=== PATIENT | male | born 1970 | race African-American/Black ===

== ENCOUNTER 2022-08-07 17:50 | Inpatient (IN) | payer OTHER ==
[~2022-08-07] VITALS: Ht 190.5 cm; Wt 81.5 kg
[2022-08-07] MEDS ORDERED: FURO40TA5 PO (18:25)
[2022-08-07] MEDS ORDERED: SPIR25TA6 PO (18:25)
[2022-08-07] MEDS ORDERED: CARV3.1242 PO (18:25)
[2022-08-07] MEDS ORDERED: FOLI-43 PO (18:25)
[2022-08-07] MEDS ORDERED: ATOR40TA70 PO (18:25)
[2022-08-07] MEDS ORDERED: PANT40TA51 PO (18:25)
[2022-08-08 03:20] LABS: BASOPHILS % 0.5 % (0.0-2.0); EOSINOPHILS % 2.2 % (0.0-5.0); HEMATOCRIT. 40.8 % (42.0-52.0); HEMOGLOBIN. 13.1 g/dL (14.0-18.0); LYMPHOCYTES % 10.1 % (20.0-50.0); MEAN CORPUSCULAR HEMOGLOBIN 25.4 pg (28.0-32.0); MEAN CORPUSCULAR VOLUME 79.2 fL (80.0-94.0); MEAN PLATELET VOLUME 9.3 fl (7.4-10.4); MONOCYTES % 5.6 % (2.0-8.0); NEUTROPHILS % 81.6 % (40.0-76.0); PLATELET 169 x1000/uL (130-400); RED BLOOD CELL COUNT 5.15 mill/uL (4.7-6.1); RED CELL DISTRIBUTION WIDTH 25.2 % (11.6-14.6)
[2022-08-08 03:26] LABS: CHLORIDE 101 mEq/L (98-107)
[2022-08-08 03:36] LABS: ETHANOL BLOOD < 10 mg/dL
[2022-08-08] MEDS: FUROSEMIDE 100MG/10ML VIAL IVP NR ×3 (04:58→05:04)
[2022-08-08 05:15] VITALS: BP 136/98
[2022-08-08 05:34] LABS: PLATELET ESTIMATE NORMAL
[2022-08-08] MEDS ORDERED: FUROSEMIDE 40MG/4ML VIAL IVP SCH (18:00)
== END 2022-08-08 06:02 | disposition short-term general hospital (02) | DRG 194 ==
LOC: ER 18:11 → MICUSO 08-08 04:24
PROVIDERS: ADMIT Internal Medicine; ATTEND Internal Medicine
DX: I50.31 Acute diastolic (congestive) heart failure (principal); I21.3 ST elevation (STEMI) myocardial infarction of unspecified site; R18.8 Other ascites; F31.9 Bipolar disorder, unspecified; Z20.822 Contact with and (suspected) exposure to COVID-19; Z86.718 Personal history of other venous thrombosis and embolism; Z87.19 Personal history of other diseases of the digestive system
CPT/HCPCS: 36415; 71045; 80053; 80320; 83605; 83880; 84484; 85025; 87426; 93005; 99285; J1940; G0480